=== PATIENT | female | born 2000 | race Caucasian/White ===

== ENCOUNTER 2019-02-26 12:20 | Outpatient (CLI) | payer OTHER ==
--- NOTE | 2019-03-23 10:16 | Diagnostic Imaging Report ---
SINDI LEO [facility] [address] [id number] Report Submission Date: Feb 26, 2019 1:28:39 PM CDT Patient Study Name: ANNIE HURST Date: Feb 26, 2019 12:24:20 PM CDT Modality Type: US Gender: F Description: LIMITED BREAST US : 89 Institution: [facility] Physician: SINDI LEO Right breast ultrasound limited History: The patient complains of a palpable tender area spanning from the 9:00 to the 3:00 breast above the level of the nipple Transverse and longitudinal images were obtained through the region of concern. The entire upper right breast was scanned from 9:00 to 3:00. Only dense fibroglandular tissue is noted. No suspicious solid or cystic masses are detected. Impression: No abnormalities are identified ultrasonographically at the upper right breast. BI-RADS 1. Negative. Recommendation: Clinical correlation and clinical follow-up. Electronically signed on Feb 26, 2019 1:28:39 PM CDT by: Lucie CHANDLER
== END 2019-02-26 12:50 | disposition home or self-care (01) ==
LOC: RAD 12:20
PROVIDERS: ATTEND Nurse Practitioner Family
DX: N63.10 Unspecified lump in the right breast, unspecified quadrant (principal)
CPT/HCPCS: 76642